=== PATIENT | female | born 1990 | race Caucasian/White ===

== ENCOUNTER 2020-08-30 08:44 | Emergency (ER) | payer OTHER ==
[~2020-08-30] VITALS: Ht 170.2 cm; Wt 104.3 kg
--- NOTE | 2020-08-31 22:01 | EKG ---
[facility] [address] [facility] [place] [address] Signed Sinus rhythm with premature atrial complexes with aberrant conduction Otherwise normal ECG No previous ECGs available Confirmed by SAIDA ARCEO MD ([id number]) on 08/31/2020 10:01:12 PM Electronically Signed By: SAIDA ARCEO MD 08/31/202200 PATIENT NAME: VINH MORLEY Electrocardiogram DATE OF : 89 PHYSICIAN: SAIDA ARCEO MD REPORT #: [id number] REPORT IS CONFIDENTIAL AND NOT TO BE RELEASED WITHOUT AUTHORIZATION
== END 2020-08-30 11:09 | disposition home or self-care (01) ==
LOC: ED 08:44
DX: R07.9 Chest pain, unspecified (principal); Z91.018 Allergy to other foods; Z91.040 Latex allergy status; Z88.8 Allergy status to other drugs, medicaments and biological substances
CPT/HCPCS: 71045; 80053; 83735; 84484; 85025; 93005; 93010; 99285-25

== ENCOUNTER 2021-07-13 10:08 | Emergency (ER) | payer OTHER ==
[~2021-07-13] VITALS: Ht 170.2 cm; Wt 120.4 kg
--- OUTSIDE RECORDS SUMMARY | 2021-07-13 10:12 | XMS ---
PreManage Notification: VINH MORLEY Security Corporate Event Planner Events No recent Security Events currently on file CRITERIA MET - PDMP CARE PROVIDERS [facility] Current PHONE: Unknown Care Guidelines exist for the following facilities: [facility] ( 10/08/2017 ) [facility] VISIT COUNT (12 MO.) 2 [facility] TOTAL 2 NOTE: Visits indicate total known visits. ED/UCC VISIT TRACKING (12 MO.) 07/13/2021 10:10 [facility] [place] TYPE: Emergency COMPLAINT: - L FOOT INJURY 08/30/2020 08:44 [facility] [place] TYPE: Emergency COMPLAINT: - CHEST PAIN DIAGNOSES: - Allergy to other foods - Chest pain, unspecified - Latex allergy status - Allergy status to other drugs, medicaments and biological substances INPATIENT VISIT TRACKING (12 MO.) No inpatient visits to display in this time frame [id number]
== END 2021-07-13 11:40 | disposition home or self-care (01) ==
LOC: ED 10:08
DX: S92.535A Nondisplaced fracture of distal phalanx of left lesser toe(s), initial encounter for closed fracture (principal); S90.32XA Contusion of left foot, initial encounter; W22.8XXA Striking against or struck by other objects, initial encounter; J45.909 Unspecified asthma, uncomplicated; Z91.012 Allergy to eggs; Z88.8 Allergy status to other drugs, medicaments and biological substances; Z91.040 Latex allergy status; Z88.5 Allergy status to narcotic agent
CPT/HCPCS: 73630; 99283-25

== ENCOUNTER 2022-09-30 05:45 | Emergency (ER) | payer OTHER ==
[~2022-09-30] VITALS: Ht 170.2 cm; Wt 113.8 kg
[2022-09-30] MEDS ORDERED: REGLAN10 MG PO (08:01)
[2022-09-30] MEDS ORDERED: ONDANSETRON ODT8 MG PO (08:01)
[2022-09-30] MEDS ORDERED: LOMOTIL TABLET1 EACH PO (08:01)
[2022-09-30] MEDS ORDERED: PROMETHAZINE HC25 M1 PO (12:36)
== END 2022-09-30 08:19 | disposition home or self-care (01) ==
LOC: ED 05:45
DX: K52.9 Noninfective gastroenteritis and colitis, unspecified (principal); J45.909 Unspecified asthma, uncomplicated; Z88.8 Allergy status to other drugs, medicaments and biological substances; Z91.040 Latex allergy status; Z88.5 Allergy status to narcotic agent
CPT/HCPCS: 36415; 80053; 81003; 83690; 83735; 84703; 85025; 96361; 96374; 96375; 99284-25; J1200; J1790; J2405; J2765; J7030

== ENCOUNTER 2022-10-03 14:59 | Emergency (ER) | payer OTHER ==
[~2022-10-03] VITALS: Ht 170.2 cm; Wt 108.6 kg
[~2022-10-03 14:59] MED LIST: LOMOTIL TABLET1 EACH PO; ONDANSETRON ODT8 MG PO; PROMETHAZINE HC25 M1 PO; REGLAN10 MG PO
--- OUTSIDE RECORDS SUMMARY | 2022-10-03 15:02 | XMS ---
PreManage Notification: VINH MORLEY Security Clinical Social Worker Events No recent Security Events currently on file CRITERIA MET - - 2 Visits in 30 Days CARE PROVIDERS -, [place]- Dentist: Lead Sharepoint Developer [facility] PHONE: [phone] YAMIL SULLIVAN Current PHONE: Unknown Care Guidelines exist for the following facilities: [facility] ( 10/08/2017 ) [facility] VISIT COUNT (12 MO.) [address] [facility] TOTAL 2 NOTE: Visits indicate total known visits. ED/UCC VISIT TRACKING (12 MO.) 10/03/2022 15:00 [facility] [place] TYPE: Emergency COMPLAINT: - VOMITING 09/30/2022 05:45 [facility] TYPE: Emergency COMPLAINT: - N/V/D INPATIENT VISIT TRACKING (12 MO.) No inpatient visits to display in this time frame [id number]
== END 2022-10-03 22:08 | disposition home or self-care (01) ==
LOC: ED 14:59
DX: E86.0 Dehydration (principal); R11.2 Nausea with vomiting, unspecified; J45.909 Unspecified asthma, uncomplicated; Z91.018 Allergy to other foods; Z88.6 Allergy status to analgesic agent; Z91.040 Latex allergy status; Z88.5 Allergy status to narcotic agent; Z79.899 Other long term (current) drug therapy
CPT/HCPCS: 36415; 74177; 80053; 81001; 83690; 84703; 85025; 96361; 96375; 99284-25; A9270; J0780; J1200; J2405; J7030; Q9967

== ENCOUNTER 2023-02-02 13:43 | Emergency (ER) | payer OTHER ==
[~2023-02-02] VITALS: Ht 170.2 cm; Wt 108.6 kg
--- OUTSIDE RECORDS SUMMARY | 2023-02-02 13:46 | XMS ---
PreMana Notification: VINH MORLEY Security Trademark Paralegal Events No recent Security Events currently on file CRITERIA MET - APPLEP CARE PROVIDERS -, [place]- Dentist: Healthcare Sales Representative [facility] PHONE: [phone] YAMIL SULLIVAN Current PHONE: Unknown [facility] Current PHONE: Unknown Care Guidelines exist for the following facilities: [facility] ( 10/08/2017 ) [facility] VISIT COUNT (12 MO.) 3 [facility] TOTAL 3 NOTE: Visits indicate total known visits. ED/UCC VISIT TRACKING (12 MO.) 02/02/2023 13:44 [facility] TYPE: Emergency COMPLAINT: - POSS MEDICATION ALLERGIC REACTION 10/03/2022 15:00 [facility] TYPE: Emergency COMPLAINT: - VOMITING DIAGNOSES: - Allergy status to analgesic agent - Allergy status to narcotic agent - Allergy to other foods - Dehydration - Latex allergy status - Nausea with vomiting, unspecified - Other terminal gauger supervisor (current) drug therapy - Unspecified asthma, uncomplicated - Vomiting, unspecified 09/30/2022 05:45 [facility] TYPE: Emergency COMPLAINT: - N/V/D DIAGNOSES: - Allergy status to narcotic agent - Allergy status to other drugs, medicaments and biological substances - Latex allergy status - Nausea with vomiting, unspecified - Noninfective gastroenteritis and colitis, unspecified - Unspecified asthma, uncomplicated INPATIENT VISIT TRACKING (12 MO.) No inpatient visits to display in this time frame [id number]
[2023-02-02] MEDS ORDERED: HYDROCODON-ACE1 EA10 PO (14:08)
[2023-02-02] MEDS ORDERED: AMOXICILLIN500 MG PO (14:08)
[2023-02-02 14:25] VITALS: BP 119/89
== END 2023-02-02 14:25 | disposition home or self-care (01) ==
LOC: ED 13:43
DX: F41.9 Anxiety disorder, unspecified (principal); Z91.012 Allergy to eggs; Z88.6 Allergy status to analgesic agent; Z91.040 Latex allergy status; Z88.5 Allergy status to narcotic agent; Z79.899 Other long term (current) drug therapy
CPT/HCPCS: 99283

== ENCOUNTER 2024-10-02 11:12 | Emergency (ER) | payer BC ==
[~2024-10-02] VITALS: Ht 170.2 cm; Wt 114.0 kg
[~2024-10-02 11:12] MED LIST changes: +AMOXICILLIN500 MG PO; +HYDROCODON-ACE1 EA10 PO
[2024-10-02] MEDS ORDERED: SODIUM CHLORIDE 0.9% 500 ML IV ONE (11:45)
[2024-10-02] MEDS ORDERED: ondansetron HCL 4 MG/2 ML VIAL IV ONE (11:45)
[2024-10-02 12:01] LABS: BASOPHILS 0.3 % (0-2); EOSINOPHILS 0.1 % (0-6); HEMOGLOBIN 13.8 g/dL (12.0-18.0); LYMPHOCYTES 13.4 % (24-44); MCH 27.6 (27-36); MCHC 34.4 g/dl (30-36); MONOCYTES 2.5 % (0-12); NEUTROPHILS 83.7 % (39-80); PLATELET COUNT 211 K/uL (140-440); RDW 15.3 (10.5-15.0)
[2024-10-02 12:14] LABS: ANION GAP 16.9 (7-21); BILIRUBIN, TOTAL 0.8 mg/dL (0.2-1.0); BUN/CREATININE RATIO 14.7 (6.0-28.6); CREATININE, SERUM 0.68 mg/dL (0.55-1.02); MAGNESIUM 1.7 mg/dL (1.8-2.4); POTASSIUM 3.9 mmol/L (3.5-5.1)
[2024-10-02] MEDS ORDERED: SODIUM CHLORIDE 0.9% 1,000 ML IV PRN ×2 (12:30→14:15)
[2024-10-02] MEDS ORDERED: METOCLOPRAMIDE HCL 10 MG/2 ML SDV IV ONE (12:30)
[2024-10-02 13:18] LABS: CORONAVIRUS COVID-19 AG NEGATIVE (NEGATIVE); INFLUENZA A AG NEGATIVE (NEGATIVE); INFLUENZA B AG NEGATIVE (NEGATIVE)
[2024-10-02] MEDS ORDERED: FAMOTIDINE 20 MG/ 2 ML VIAL IV ONE (13:45)
[2024-10-02] MEDS ORDERED: diphenhydrAMINE HCL 50 MG/ML VIAL IV ONE (13:45)
[2024-10-02] MEDS ORDERED: HALOPERIDOL LACTATE 5 MG/ML VIAL IV ONE (13:45)
[2024-10-02] MEDS ORDERED: PROMETHAZINE HC25 M1 PO (19:06)
[2024-10-02] MEDS ORDERED: ONDANSETRON ODT8 MG PO (19:06)
[2024-10-02 19:27] VITALS: BP 147/85
== END 2024-10-02 19:26 | disposition home or self-care (01) ==
LOC: ED 11:12
PROVIDERS: Emergency Medicine
DX: A08.4 Viral intestinal infection, unspecified (principal); J45.909 Unspecified asthma, uncomplicated; Z88.5 Allergy status to narcotic agent; Z91.012 Allergy to eggs; Z88.6 Allergy status to analgesic agent; Z91.040 Latex allergy status
CPT/HCPCS: 80053; 83690; 83735; 84703; 85025; 96361; 96374; 96375; 99284-25; J1200; J1630; J2405; J2765; J7030; J7040

== ENCOUNTER 2024-10-13 18:44 | Emergency (ER) | payer BC ==
[~2024-10-13] VITALS: Ht 170.2 cm; Wt 111.0 kg
--- OUTSIDE RECORDS SUMMARY | 2024-10-13 18:51 | XMS ---
PreManage Notification: VINH MORLEY Security Property Utilization Officer Events No recent Security Events currently on file CRITERIA MET - [facility] - 2 Visits in 30 Days CARE PROVIDERS -, [place]- Dentist: [employer] Worker [employer] [facility] PHONE: [phone] IRMA TODD Emergency Medicine Current PHONE: Unknown Care Guidelines exist for the following facilities: [facility] ( 05/08/2015 ) [facility] VISIT COUNT (12 MO.) [address] [facility] TOTAL 2 NOTE: Visits indicate total known visits. ED/UCC VISIT TRACKING (12 MO.) 10/13/2024 18:45 [facility] [place] TYPE: Emergency COMPLAINT: - VOMITING 10/02/2024 11:13 [facility] [place] TYPE: Emergency COMPLAINT: - VOMITING DIAGNOSES: - Allergy status to analgesic agent - Allergy status to narcotic agent - Allergy to eggs - Latex allergy status - Nausea with vomiting, unspecified - Unspecified asthma, uncomplicated - Viral intestinal infection, unspecified INPATIENT VISIT TRACKING (12 MO.) No inpatient visits to display in this time frame [id number]
[2024-10-13] MEDS ORDERED: ondansetron HCL 4 MG/2 ML VIAL IV ONE (20:15)
[2024-10-13] MEDS ORDERED: LACTATED RINGER'S 1,000 ML IV ONE ×2 (20:30→22:45)
[2024-10-13 20:50] LABS: BASOPHILS 0.5 % (0-2); EOSINOPHILS 0.7 % (0-6); HEMATOCRIT 41.4 % (35.0-50.0); HEMOGLOBIN 14.4 g/dL (12.0-18.0); LYMPHOCYTES 22.8 % (24-44); MCH 27.5 (27-36); MCHC 34.8 g/dl (30-36); MCV 79.1 fl (81-99); MONOCYTES 3.5 % (0-12); NEUTROPHILS 72.5 % (39-80); PLATELET COUNT 243 K/uL (140-440); RBC 5.23 M/ul (4.3-5.7); RDW 14.5 (10.5-15.0)
[2024-10-13 21:06] LABS: ALBUMIN 3.8 g/dL (3.4-5.0); ALBUMIN/GLOBULIN RATIO 0.93 (1.1-2.4); ANION GAP 14.3 (7-21); BILIRUBIN, TOTAL 0.8 mg/dL (0.2-1.0); BUN/CREATININE RATIO 6.97 (6.0-28.6); CALCIUM 9.4 mg/dL (8.5-10.1); CREATININE, SERUM 0.86 mg/dL (0.55-1.02); MAGNESIUM 1.8 mg/dL (1.8-2.4); POTASSIUM 3.3 mmol/L (3.5-5.1); PROTEIN, TOTAL 7.9 g/dL (6.4-8.2)
[2024-10-13] MEDS ORDERED: FAMOTIDINE 20 MG/ 2 ML VIAL IV ONE (22:45)
[2024-10-13] MEDS ORDERED: droPERidol 5 MG/2 ML VIAL IV ONE (22:45)
[2024-10-14 00:17] LABS: BILIRUBIN, URINE POSITIVE (negative); BLOOD/HGB, URINE NEGATIVE (Negative); KETONE, URINE >=80 (Negative); LEUK ESTERASE, URINE NEGATIVE (negative); NITRITE, URINE NEGATIVE (negative); PH, URINE 6.5 (5-7)
[2024-10-14] MEDS ORDERED: OMEPRAZOLE20 MG PO (00:52)
[2024-10-14] MEDS ORDERED: PROMETHEGAN25 MG PR (00:52)
[2024-10-14] MEDS ORDERED: ONDANSETRON ODT8 MG PO (00:52)
[2024-10-14 00:59] LABS: AMPHETAMINES, URINE NEGATIVE (NEGATIVE); BACTERIA, URINE NONE SEEN /hpf (negative); BARBITURATES, URINE NEGATIVE (NEGATIVE); BENZODIAZEPINE, URINE NEGATIVE (NEGATIVE); BUPRENORPHINE, URINE NEGATIVE (NEGATIVE); CANNABINOID, URINE POSITIVE (NEGATIVE); CASTS, URINE NONE SEEN \\lpf; COCAINE, URINE NEGATIVE (NEGATIVE); COLLECTION TYPE, URINE CLEAN CATCH; CRYSTALS, URINE NONE SEEN (0-1+); ECSTASY, URINE NEGATIVE (NEGATIVE); EPITHELIAL CELLS, URINE 0 /lpf (0-1+); FENTANYL, URINE NEGATIVE (NEGATIVE); METHADONE, URINE NEGATIVE (NEGATIVE); OPIATES, URINE NEGATIVE (NEGATIVE); OXYCODONE, URINE NEGATIVE (NEGATIVE); PHENCYCLIDINE, URINE NEGATIVE (NEGATIVE); RED BLOOD CELLS, URINE 0-1 /hpf (0-5); REFLEX CULTURE, URINE No (No); WHITE BLOOD CELLS, URINE 0-1 /HPF (0-5)
[2024-10-14 01:00] VITALS: BP 128/80
== END 2024-10-14 01:00 | disposition home or self-care (01) ==
LOC: ED 18:44
PROVIDERS: Internal Medicine
DX: K21.9 Gastro-esophageal reflux disease without esophagitis (principal); E86.0 Dehydration; Z88.5 Allergy status to narcotic agent; Z91.012 Allergy to eggs; Z88.6 Allergy status to analgesic agent; Z91.040 Latex allergy status
CPT/HCPCS: 36415; 80053; 80307; 81001; 83735; 84703; 85025; 96374; 96375; 99284-25; J1790; J2405; J7121